=== PATIENT | female | born 1935 | race African-American/Black ===

== ENCOUNTER 2018-06-27 15:14 | Inpatient (IN) | payer OTHER, MEDICAID ==
[~2018-06-27] VITALS: Ht 160 cm; Wt 108.0 kg
[2018-06-27 15:17] VITALS: BP 138/65
--- NOTE | 2018-06-27 16:10 | NUR ---
ATIENT C/O F FEELING WEAK AND DIZZY, STATES THAT SHE FEELS "SOMETHING IS WRONG WITH MY BP." BP IS 138/65, PAIN 9/10 IN LEFT LEG, REPORTS FALLING LAST WEEK. . DENIES N/V/D; SKIN IS PINK/WARM/DRY; AWAKE, ALERT.LUNGS CLEAR BL; HR EVEN AND REGULAR; PT DENIES ANY FEVER, CP, SOB, OR COUGH AT THIS TIME; PATIENT STATES PAIN OF 9/10 AT THIS TIME; VSS; PATIENT POSITIONED FOR COMFORT; HOB ELEVATED; BEDRAILS UP X2; BED DOWN. ER MD MADE AWARE OF PT STATUS.
--- NOTE | 2018-06-27 16:18 | NUR ---
I WALKED OVER TO LAB URINE SAMPLE COLLECTED FROM PT
[2018-06-27] MEDS ORDERED: NACL 0.9% 1,000 ML IV SCH (16:53)
[2018-06-27 16:59] LABS: BASOPHILS % (AUTO) 0.6 % (0.0-2.0); EOSINOPHILS # (AUTO) 0.2 K/uL (0-0.4); EOSINOPHILS % (AUTO) 2.5 % (0.0-4.0); HEMATOCRIT 37.1 % (36-48); HEMOGLOBIN 11.5 g/dL (12.0-16.0); LYMPHOCYTES # (AUTO) 1.5 K/uL (2.5-16.5); LYMPHOCYTES % (AUTO) 23.8 % (20.5-51.1); MEAN CORPUSCULAR HEMOGLOBIN 27 pg (27-31); MEAN CORPUSCULAR HGB CONC 31 g/dL (33-37); MEAN CORPUSCULAR VOLUME 85.9 fL (80-94); MONOCYTES # (AUTO) 0.7 K/uL (0.8-1.0); MONOCYTES % (AUTO) 10.6 % (1.7-9.3); NEUTROPHILS # (AUTO) 3.8 K/uL (1.8-7.7); NEUTROPHILS % (AUTO) 62.5 % (42.2-75.2); PLATELET COUNT (AUTO) 209 K/uL (140-450); RED BLOOD CELL COUNT(AUTO) 4.32 MIL/uL (4.20-5.40); RED CELL DISTRIBUTION WIDTH 19.1 % (11.6-13.7); WHITE BLOOD COUNT (AUTO) 6.1 K/uL (4.8-10.8)
[2018-06-27] MEDS: NACL 0.9% 1,000 ML IV SCH (17:27)
[2018-06-27 17:28] LABS: ANION GAP 10.9 (8-16); CARBON DIOXIDE 27.1 mmol/L (21-32); CHLORIDE 108 mmol/L (98-107); CREATININE 2.1 mg/dL (0.6-1.3); GLUCOSE 92 mg/dL (74-106); SODIUM SERUM 141 mmol/L (136-145); UREA NITROGEN, BLOOD 34 mg/dL (7-18)
[2018-06-27 17:29] LABS: PROTHROMBIN TIME 9.9 secs (10.8-13.4)
[2018-06-27] MEDS ORDERED: ONDANSETRON 4 MG/2 ML VIAL IM/IVP PRN (17:30)
[2018-06-27] MEDS ORDERED: DOCUSATE SODIUM 100 MG GELCAP PO PRN (17:30)
[2018-06-27] MEDS ORDERED: ACETAMINOPHEN 325 MG TAB PO PRN (17:30)
--- NOTE | 2018-06-27 18:00 | NUR ---
TRIED ONE TIME TO INSERT IV AND CHARGE NURSE TRIED TWO TIMES, UNABLE TO INSERT IV.
[2018-06-27 18:18] LABS: MAGNESIUM 2.3 mg/dL (1.8-2.4); PHOSPHORUS 3.4 mg/dL (2.5-4.9)
[2018-06-27 18:19] LABS: CHOL/HDL RATIO 2.5 (1-4.5); THYROID STIMULATING HORMONE 1.3 uIU/mL (0.34-3.74); TOTAL BILIRUBIN 0.4 mg/dL (0.0-1.0)
[2018-06-27 18:24] LABS: MAGNESIUM 2.3 mg/dL (1.8-2.4)
[2018-06-27 18:42] LABS: ALBUMIN 3.6 g/dL (3.4-5.0)
[2018-06-27 18:44] LABS: APPEARANCE,URINE CLEAR (CLEAR); BILIRUBIN,URINE NEGATIVE (NEGATIVE); BLOOD, URINE NEGATIVE (NEGATIVE); COLOR,URINE YELLOW (YELLOW); LEUKOCYTE ESTERASE ,URINE NEGATIVE (NEGATIVE); NITRITE, URINE NEGATIVE (NEGATIVE); UGLUCOSE NEGATIVE (NEGATIVE)
[2018-06-27] MEDS ORDERED: HYDROcodone/APAP 5/325 MG 1 TAB TAB PO ONE (18:55)
--- NOTE | 2018-06-27 19:15 | NUR ---
ENDORSED PT TO PM NURSE
--- NOTE | 2018-06-27 19:38 | NUR ---
Pt report given to KYLE. Transfer of care at this time.
--- NOTE | 2018-06-27 19:44 | NUR ---
RECEIVED FROM ER PER WHEELCHAIR AWAKE AND ALERT. ABLE TO VERBALIZE SIMPLE NEEDS IN FRENCH. A/O X 4. NO SOB. DENIES ANY PAIN AT THIS TIME. EXPLAINED CALL LIGHT USE. ENCOURAGED TO CALL FOR ANY HELP SHE MAY NEED. IVF SITE TO RIGHT WRIST #24. DX. OF GENERALIZED WEAKNESS. HX. DEMENTIA. ON BED ALARM . SKIN INTACT. CARE PLANS FOR THE NIGHT DISCUSSED WITH HER.
[2018-06-27 20:28] VITALS: BP 148/65
--- NOTE | 2018-06-27 23:00 | NUR ---
ASSISTED BY [facility] [place] TO RESTROOM TO URINATE. CALL LIGHT WITH IN REACH AND BED ALARM ON. ABLE TO USE CALL LIGHT FOR HELP.
[2018-06-28 01:02] VITALS: BP 131/60
[2018-06-28] MEDS: HYDROcodone/APAP 7.5/325 MG 1 TAB PO PRN ×4 (01:05→20:16)
[2018-06-28] MEDS ORDERED: AMLO10TA4 PO (01:17)
[2018-06-28] MEDS ORDERED: FURO-570 PO (01:17)
[2018-06-28] MEDS ORDERED: METO100T33 PO (01:17)
[2018-06-28] MEDS ORDERED: CLON0.1T42 PO (01:17)
[2018-06-28] MEDS ORDERED: ALLO100T21 PO (01:17)
[2018-06-28] MEDS ORDERED: GABA100C PO (01:17)
[2018-06-28] MEDS ORDERED: cloNIDine 0.1 MG TAB PO SCH (01:20)
--- NOTE | 2018-06-28 01:44 | NUR ---
SLEEPING AT THIS TIME.
[2018-06-28] MEDS: NACL 0.9% 1,000 ML IV SCH ×2 (03:03→15:49)
--- NOTE | 2018-06-28 03:20 | NUR ---
SLEEPING WELL. WAKES UP EASILY WHEN CALLED BY NAME.
--- NOTE | 2018-06-28 04:21 | NUR ---
AWAKE AT THIS TIME. ASSISTED TO RESTROOM TO URINATE. ABLE TO VERBALIZE NEEDS WELL. WITH FORGETFULNESS AT TIMES. BED ALARM ON.
[2018-06-28 06:16] LABS: T4 (THYROXINE) 5.9 ug/dL (4.5-12.0)
--- NOTE | 2018-06-28 07:00 | NUR ---
TALKED TO DAUGHTER EWELINA AND INFORMED ME THAT HER MOTHER IS COMPLAINING OF LEFT LEG PAIN. PT. EXTRUDER OPERATOR VERTICAL THINKS IT NEEDS TO BE CHECKED RT SHE KEEPS FALLING. INFORMED CHARGE NURSE OF DAUGHTER'S REQUEST FOR FURTHER STUDY ABOUT THE LEG PAIN. WILL INFORM RESIDENT .
--- NOTE | 2018-06-28 07:30 | NUR ---
Received report from pm nurse Juliette. Pt resting in bed, awake, no signs of distress, FLACC 0. Call light within reach.
[2018-06-28 07:31] LABS: ANION GAP 14.4 (8-16); CARBON DIOXIDE 22.9 mmol/L (21-32); CHLORIDE 109 mmol/L (98-107); CREATININE 1.8 mg/dL (0.6-1.3); GLUCOSE 83 mg/dL (74-106); POTASSIUM 4.3 mmol/L (3.5-5.1); SODIUM SERUM 142 mmol/L (136-145)
[2018-06-28 07:33] LABS: MAGNESIUM 2.1 mg/dL (1.8-2.4); PHOSPHORUS 3.5 mg/dL (2.5-4.9)
[2018-06-28 08:00] VITALS: BP 111/72
--- NOTE | 2018-06-28 08:15 | NUR ---
PATIENT HAS BEEN SCREENED AND CATEGORIZED HIGH NUTRITION RISK. PATIENT WILL BE SEEN WITHIN 1-2 DAYS OF ADMISSION. 06/28/18-06/29/[address]
--- NOTE | 2018-06-28 08:15 | NUR ---
Received phone call from pt's daughter Linda stating that pt's knitting machine fixer had suggested pt might have a clot in her left leg. Dr. Call notified with request for BLE US. Pt currently resting in bed, awake, no signs of distress. BLE with mild swelling, no redness, no Homans sign. Right hand IV intact with ongoing NS @ 70 ml/hr. Bed in lowest position with alarm on. Call light within reach.
[2018-06-28] MEDS: LACTOBACILLUS RHAMNOSUS GG 1 EACH CAP PO SCH (08:26)
[2018-06-28] MEDS: METOPROLOL SUCCINATE 50 MG TABER PO SCH (08:26)
[2018-06-28] MEDS: amLODIPine 5 MG TAB PO SCH (08:26)
[2018-06-28] MEDS: ALLOPURINOL 100 MG TAB PO SCH (08:27)
[2018-06-28] MEDS: GABAPENTIN 100 MG CAP PO SCH ×3 (08:27→17:24)
[2018-06-28 08:44] LABS: BASOPHILS # (AUTO) 0.1 K/uL (0.00-0.22); BASOPHILS % (AUTO) 1.1 % (0.0-2.0); EOSINOPHILS # (AUTO) 0.2 K/uL (0-0.4); EOSINOPHILS % (AUTO) 3.1 % (0.0-4.0); HEMOGLOBIN 10.6 g/dL (12.0-16.0); LYMPHOCYTES # (AUTO) 1.6 K/uL (2.5-16.5); LYMPHOCYTES % (AUTO) 27.7 % (20.5-51.1); MEAN CORPUSCULAR HEMOGLOBIN 27 pg (27-31); MEAN CORPUSCULAR HGB CONC 31 g/dL (33-37); MONOCYTES # (AUTO) 0.6 K/uL (0.8-1.0); MONOCYTES % (AUTO) 10.8 % (1.7-9.3); NEUTROPHILS # (AUTO) 3.3 K/uL (1.8-7.7); NEUTROPHILS % (AUTO) 57.3 % (42.2-75.2); PLATELET COUNT (AUTO) 196 K/uL (140-450); RED BLOOD CELL COUNT(AUTO) 3.96 MIL/uL (4.20-5.40); WHITE BLOOD COUNT (AUTO) 5.8 K/uL (4.8-10.8)
[2018-06-28] MEDS ORDERED: FUROSEMIDE 40 MG TAB PO SCH (09:00)
--- NOTE | 2018-06-28 09:10 | NUR ---
PT at bedside for eval & tx.
[2018-06-28 10:55] LABS: UREA NITROGEN, BLOOD 30 mg/dL (7-18)
--- NOTE | 2018-06-28 11:45 | NUR ---
extractions technician at bedside for BLE & thyroid US.
--- NOTE | 2018-06-28 12:30 | NUR ---
Pt sitting up in bed, eating lunch. No signs of distress. Call light within reach.
[2018-06-28] MEDS: MECLIZINE 25 MG TAB PO SCH ×2 (13:21→17:23)
--- NOTE | 2018-06-28 14:40 | NUR ---
Pt transferred from room 107A to 121A via hospital bed. Pt agreeable with transfer. No c/o discomfort at this time. Call light within reach.
--- NOTE | 2018-06-28 15:42 | NUR ---
Car Cleaner Note: Per Deepika from [facility] , patient has been living in their facility for about 1 month. She reported patient is non ambulatory and uses a wheelchair. She stated patient does not have an existing Advance Directive in file and her daughter Linda Jerez is her health care decision maker. Patient's pcp is from [facility]. Stores Laborer and/or Strap Sewer will follow up as needed.
[2018-06-28 16:00] VITALS: BP 124/55
--- NOTE | 2018-06-28 19:18 | NUR ---
Report given to pm nurse Juliette. Pt stable.
--- NOTE | 2018-06-28 19:20 | NUR ---
RECEIVED FROM AM RN IN BED AWAKE AND ALERT. NO SOB. DENIES PAIN AT THIS TIME. MEDICATED FOR PAIN PRN . ABLE TO VERBALIZE NEEDS WELL. ABLE TO USE CALL LIGHT TOO FOR HELP. ENCOURAGED TO CALL FOR ANY HELP SHE MAY NEED OR IF IN PAIN.
[2018-06-28 20:06] VITALS: BP 113/50
--- NOTE | 2018-06-28 21:30 | NUR ---
PT. SLEEPING. NO RESTLESSNESS. MEDICATED WITH NORCO REQUESTED FOR GENERALIZED PAIN COMPLAINT. BED ALARM ON . CALL LIGHT WITH IN REACH.
[2018-06-29 00:13] VITALS: BP 111/44
--- NOTE | 2018-06-29 00:18 | NUR ---
PT. SLEEPING BUT WOKE UP EASILY WHEN VITAL SIGNS TAKEN. NO PAIN COMPLAINTS DONE. IVF SITE INTACT AND NO INFILTRATION.
--- NOTE | 2018-06-29 02:00 | NUR ---
PT. TURNED TO SIDES BY CNAS WITH PILLOW SUPPORT. ABLE TO VERBALIZE NEEDS WELL. ABLE TO MOVE EXTREMITIES. CALL LIGHT WITH IN REACH.
--- NOTE | 2018-06-29 04:30 | NUR ---
PT. TURNED TO SIDES BY CNAS. CALL LIGHT WITH IN REACH. NO SOB. DENIES PAIN AT THIS TIME. CALL LIGHT WITH IN REACH AT ALL TIMES. ABLE TO VERBALIZE NEEDS WELL.
[2018-06-29] MEDS: NACL 0.9% 1,000 ML IV SCH (05:52)
[2018-06-29 06:52] LABS: ANION GAP 12.5 (8-16); CARBON DIOXIDE 23.9 mmol/L (21-32); CHLORIDE 110 mmol/L (98-107); CREATININE 1.8 mg/dL (0.6-1.3); GLUCOSE 83 mg/dL (74-106); POTASSIUM 4.4 mmol/L (3.5-5.1); SODIUM SERUM 142 mmol/L (136-145); UREA NITROGEN, BLOOD 29 mg/dL (7-18)
--- NOTE | 2018-06-29 07:01 | NUR ---
NEW IVF LINE INSERTED TO LEFT HAND #24 RT PT. ACCIDENTALLY D/CD OLD IVF TO RIGHT THUMB. TIP INTACT. VERBALIZES WELL.
[2018-06-29 07:10] LABS: HEMATOCRIT 35.4 % (36-48); HEMOGLOBIN 11.1 g/dL (12.0-16.0); MEAN CORPUSCULAR HEMOGLOBIN 27 pg (27-31); MEAN CORPUSCULAR HGB CONC 31 g/dL (33-37); MEAN CORPUSCULAR VOLUME 86.7 fL (80-94); PLATELET COUNT (AUTO) 190 K/uL (140-450); RED BLOOD CELL COUNT(AUTO) 4.08 MIL/uL (4.20-5.40); RED CELL DISTRIBUTION WIDTH 18.9 % (11.6-13.7); WHITE BLOOD COUNT (AUTO) 4.9 K/uL (4.8-10.8)
[2018-06-29 07:11] LABS: BASOPHILS # (AUTO) 0.1 K/uL (0.00-0.22); BASOPHILS % (AUTO) 1.1 % (0.0-2.0); EOSINOPHILS # (AUTO) 0.2 K/uL (0-0.4); EOSINOPHILS % (AUTO) 4.7 % (0.0-4.0); LYMPHOCYTES # (AUTO) 1.4 K/uL (2.5-16.5); LYMPHOCYTES % (AUTO) 28.5 % (20.5-51.1); MONOCYTES # (AUTO) 0.5 K/uL (0.8-1.0); MONOCYTES % (AUTO) 10.6 % (1.7-9.3); NEUTROPHILS # (AUTO) 2.7 K/uL (1.8-7.7); NEUTROPHILS % (AUTO) 55.1 % (42.2-75.2)
--- NOTE | 2018-06-29 07:15 | NUR ---
RECEIVED BEDSIDE REPORT FROM LUIS MANUEL WRIGHT. PT STABLE, AWAKE, AND ALERT. NO SIGNS OF DISTRESS NOTED. DENIES PAIN. NO REDNESS, SWELLING, OR INFLAMMATION NOTED ON IV SITE. BED IN LOW POSITION. CALL LIGHT WITHIN REACH. SAFETY MEASURES IN PLACE. PLAN OF CARE REVIEWED.
[2018-06-29 08:00] VITALS: BP 151/59
[2018-06-29] MEDS ORDERED: RIVAROXABAN 15 MG TAB PO SCH (09:00)
[2018-06-29] MEDS: METOPROLOL SUCCINATE 50 MG TABER PO SCH (09:00)
[2018-06-29] MEDS: amLODIPine 5 MG TAB PO SCH (09:26)
[2018-06-29] MEDS: ALLOPURINOL 100 MG TAB PO SCH (09:26)
[2018-06-29] MEDS: LACTOBACILLUS RHAMNOSUS GG 1 EACH CAP PO SCH (09:26)
[2018-06-29] MEDS: MECLIZINE 25 MG TAB PO SCH ×2 (09:27→13:17)
[2018-06-29] MEDS: GABAPENTIN 100 MG CAP PO SCH ×2 (09:27→13:17)
--- NOTE | 2018-06-29 09:30 | NUR ---
P.T. NOTES PATIENT REFUSED TO HAVE P.T. SERVICES, EXPLAINED THE BENEFITS OF OUT OF BED ACTIVITIES AND ATTEMPTED X 3 BUT STILL REFUSED. STATES SHE HAS A HEADACHE AND JUST WANT TO REST FOR NOW. HER NURSE ARIANE ENGLISH WAS MADE AWARE.
--- NOTE | 2018-06-29 09:43 | NUR ---
ADMINISTERED SCHEDULED MEDICATIONS. PT TOLERATED WELL. NO OTHER NEEDS AT THIS TIME.
--- NOTE | 2018-06-29 10:08 | NUR ---
Spoke with Radha social media community manager from [facility] and informed her that pt has orders for home health for PT. Radha said [facility] doesn't send home health to the pt but they have their own center for PT and she will arrange for it. AUTH for [facility] [phone]. Faxed to [facility] PT notes and 's orders Meds faxed to .
[2018-06-29] MEDS ORDERED: MECL-272 PO (10:17)
[2018-06-29] MEDS ORDERED: RIVA20TA PO (10:17)
[2018-06-29] MEDS ORDERED: RIVA15TA1 PO (10:17)
--- NOTE | 2018-06-29 10:40 | NUR ---
Informed Dr. Douglas and Haritha charge nurse that pt's orders for PT will be arranged by [facility] in their center. Nurse can arranged for pt to be continuous pickling line pickler helper by [facility] .
--- NOTE | 2018-06-29 11:05 | NUR ---
SPOKE WITH DANITA FROM [facility] REGARDING PATIENT'S TRANSFER.
--- NOTE | 2018-06-29 12:22 | NUR ---
will curing pickling packer pt from room 121 A at 1500 and transported to [address] [place] [address]. . Carter Bailon RN informed pt's curing pickling packer time by is at 1500.
--- NOTE | 2018-06-29 13:24 | NUR ---
ADMINISTERED SCHEDULED MEDICATIONS. PT TOLERATED WELL. NO OTHER NEEDS AT THIS TIME. DAUGHTER AT BEDSIDE.
--- NOTE | 2018-06-29 16:05 | NUR ---
D/C INSTRUCTIONS AND PRESCRIPTION GIVEN. PT AND FAMILY VERBALIZED UNDERSTANDING. IV DISCONTINUED, CATHETER TIP INTACT, BLEEDING CONTROLLED. QUESTIONS AND CONCERNS WERE ANSWERED. PT STABLE, NO SIGNS OF DISTRESS NOTED. PT PICKED UP BY TO BE TRANSFERRED TO [facility].
== END 2018-06-29 16:05 | disposition home or self-care (01) | DRG 73 ==
LOC: MED 15:14 → MTU 17:31
PROVIDERS: ADMIT General Practice; ATTEND General Practice
DX: G90.8 Other disorders of autonomic nervous system (principal); N17.0 Acute kidney failure with tubular necrosis; I69.351 Hemiplegia and hemiparesis following cerebral infarction affecting right dominant side; G62.9 Polyneuropathy, unspecified; M10.9 Gout, unspecified; I10 Essential (primary) hypertension; I48.91 Unspecified atrial fibrillation; E07.89 Other specified disorders of thyroid; J44.9 Chronic obstructive pulmonary disease, unspecified; Z88.2 Allergy status to sulfonamides; Z88.0 Allergy status to penicillin; Z91.013 Allergy to seafood; Z95.0 Presence of cardiac pacemaker; I25.2 Old myocardial infarction; Z90.49 Acquired absence of other specified parts of digestive tract
CPT/HCPCS: 36415; 70450; 71045; 74018; 76536; 80048; 81003; 82040; 82140; 82150; 82247; 83036; 83605; 83690; 83735; 83880; 84100; 84155; 84436; 84443; 84450; 84460; 84479; 84484; 85025; 85610; 85730; 87081; 93005; 93880; 93970; 97116; 99285; J7030; J8597; Q0092

== ENCOUNTER 2020-03-08 | Inpatient (IN) | payer OTHER, MEDICAID, SELFPAY ==
[~2020-03-08] VITALS: Ht 167.6 cm; Wt 67.6 kg
[~2020-03-08] MED LIST: ALLO100T21 PO; AMLO10TA4 PO; CLON0.1T42 PO; FURO-570 PO; GABA100C PO; MECL-311 PO; METO100T99 PO; RIVA15TA1 PO; RIVA20TA PO
[2020-03-08 00:08] VITALS: BP 107/85
--- NOTE | 2020-03-08 00:13 | NUR ---
PT TAKEN TO BED 08 VIA RAMBOY.
--- NOTE | 2020-03-08 00:15 | NUR ---
84 YO F BIBA FROM [facility] FOR C/C OF GENERALIZED WEAKNESS, LIGHTHEADEDNESS, AND DECREASED O2 SAT. PER [facility] REPORT PT IS COVID POSITIVE AND WAS ORDERED 2L OF NC BUT WAS FOUND WITHOUT O2 IN PLACE AND SATING AT 87% ON ROOM AIR. PT PRESENTS ON A 15L NRB AT 99%. BILATERAL CRACKLES AUSCULTATED IN LOWER LOBES. PT TITRATED DOWN TO 6L OXIMIZER SATING AT 96%. PT PRESENT IN NSR, AFEBRILE, AND DENIES SOB AND COUGH. LIMITED INFORMATION PROVIDED BY PT DUE TO DEMENTIA DX. PT PLACED ON INSPECTOR FINAL ASSEMBLY ELECTRICAL AND PULSE OX. BED LOCKED AND IN LOWEST POSITION. SIDE RAILS X2. MED HX: A FIB, DM2, CAD, CVA, DEMENTIA
--- NOTE | 2020-03-08 00:20 | NUR ---
LAB AT BEDSIDE
--- NOTE | 2020-03-08 00:20 | NUR ---
EKG AT BEDSIDE
--- NOTE | 2020-03-08 00:32 | NUR ---
RT AT BEDSIDE
[2020-03-08 00:36] LABS: HEMOGLOBIN 11.4 g/dL (12.0-16.0); RED CELL DISTRIBUTION WIDTH 21.4 % (11.6-13.7)
--- NOTE | 2020-03-08 00:38 | NUR ---
RAD AT BEDSIDE
[2020-03-08 00:41] LABS: HEMATOCRIT 35.6 % (36-48); MEAN CORPUSCULAR HEMOGLOBIN 27 pg (27-31); MEAN CORPUSCULAR HGB CONC 32 g/dL (33-37); MEAN CORPUSCULAR VOLUME 82.7 fL (80-94); PLATELET COUNT (AUTO) 201 K/uL (140-450); WHITE BLOOD COUNT (AUTO) 6.2 K/uL (4.8-10.8)
[2020-03-08 00:54] LABS: PROTHROMBIN TIME 30.6 secs (10.8-13.4)
[2020-03-08 00:55] LABS: LACTATE DEHYDROGENASE 317 U/L (81-234)
[2020-03-08 00:56] LABS: ALBUMIN 2.8 g/dL (3.4-5.0); ANION GAP 20.9 (8-16); ASPARTATE AMINOTRANSFERASE 25 U/L (15-37); CARBON DIOXIDE 19.3 mmol/L (21-32); CHLORIDE 100 mmol/L (98-107); GLUCOSE 88 mg/dL (74-106); POTASSIUM 4.2 mmol/L (3.5-5.1); SODIUM SERUM 136 mmol/L (136-145); TOTAL BILIRUBIN 0.5 mg/dL (0.0-1.0); UREA NITROGEN, BLOOD 50 mg/dL (7-18)
--- NOTE | 2020-03-08 01:00 | NUR ---
ERMD MADE AWARE OF 98/40 BP.
[2020-03-08 01:10] LABS: BASOPHILS % (MANUAL) 0 % (0-2); EOSINOPHILS % (MANUAL) 0 % (0-4); LYMPHOCYTES % (MANUAL) 9 % (20-46); MONOCYTES % (MANUAL) 5 % (5-12)
[2020-03-08] MEDS ORDERED: NACL 0.9% 1,000 ML IV ONE (01:15)
[2020-03-08 01:19] LABS: C-REACTIVE PROTEIN QUANT 19.4 mg/dL (0.0-0.9)
--- NOTE | 2020-03-08 01:52 | NUR ---
ELINA SWAB COLLECTED AND TAKEN TO LAB
[2020-03-08] MEDS ORDERED: OMEP20TC11 PO (01:54)
[2020-03-08] MEDS ORDERED: CYCL10TA33 PO (01:54)
[2020-03-08] MEDS ORDERED: ALLO100T21 PO (01:54)
[2020-03-08] MEDS ORDERED: IMO2 PO (01:54)
[2020-03-08] MEDS ORDERED: WARF4TAB84 PO (01:54)
--- NOTE | 2020-03-08 02:00 | NUR ---
SPOKE WITH PTS DAUGHTER ON PHONE TO ANSWER QUESTIONS AND EXPLAIN PLAN OF CARE. SU OLIVER JR ([phone])
--- NOTE | 2020-03-08 02:39 | NUR ---
CALLED AND GAVE REPORT TO LUIS MANUEL PAN ON MST FLOOR.
--- NOTE | 2020-03-08 03:15 | NUR ---
Patient will be admitted to care of [facility]. Admited to TELE. Will go to room 115A. Belongings list completed. Report to LUIS MANUEL PAN.
[2020-03-08 03:20] VITALS: BP 105/52
--- NOTE | 2020-03-08 03:20 | NUR ---
ADMITTED THE PATIENT FROM ER VIA GURNEY. PATIENT AWAKE,ALERT, ORIENTEDX1. DENIES ANY PAIN,CHEST PAIN,SOB AND PALPITATIONS. CONNECTED PT ON TESTER REGULATOR SHOWING SR,HR-71. VSS, AFEBRILE, SATING 93% ON 4L/OXYMIZER. ORIENTED THE PT TO THE ROOM SETTING AND USE OF CALL LIGHT SYSTEM. FALL PRECAUTION IMPLEMENTED AND INSTRUCTED THE PT NOT TO GET OUT OF BED WITHOUT ASSISTANCE.BED ALARM ON AND BED IN LOW POSITION. CALL LIGHT WITHIN REACH. DROPLET PRECAUTION IMPLEMENTED.WILL CONTINUE POC.
--- NOTE | 2020-03-08 04:00 | NUR ---
PATIENT VITALS SIGNS STABLE, AFEBRILE, SATING 93% ON 4L/OXYMIZER. SINUS RHYTHM ON PLATE SETTER, HR-66. NO COMPLAIN OF PAIN AT THIS TIME. CALL LIGHT WITHIN REACH.AM CARE RENDERED.
--- NOTE | 2020-03-08 05:29 | NUR ---
PT SEEN AND ASSESSED. PT PLACED ON 4L OXYMIZER WITH SPO2 OF 94%. AUSCULTATION REVEALS BILATERAL COARSE CRACKLE BREATH SOUNDS. PT IS IN NO APPARENT RESPIRATORY DISTRESS AT THIS TIME. WILL CONTINUE TO MONITOR PT.
[2020-03-08] MEDS ORDERED: INSULIN LISPRO SLIDING SCALE 100 UNITS/ML VIAL SUBQ PRN (05:50)
[2020-03-08] MEDS ORDERED: DEXTROSE 50% 50 ML SYR IVP PRN (05:50)
--- NOTE | 2020-03-08 06:00 | NUR ---
PATIENT STABLE. NO SIGN AND SYMPTOMS OF DISTRESS NOTED . NO COMPLAIN AT THIS TIME. ALL NEEDS ATTENDED. CALL LIGHT WITHIN REACH. WILL ENDORSE THE PT TO THE ONCOMING RN FOR CONTINUITY OF CARE.
[2020-03-08] MEDS: BLOOD GLUCOSE MONITORING 1 DEV DEV FS SCH ×4 (06:42→20:27)
--- NOTE | 2020-03-08 07:41 | NUR ---
ENDORSED PT TO DAY RN FOR CONTINUITY OF CARE. PT STABLE. SIGNING OFF.
--- NOTE | 2020-03-08 07:42 | NUR ---
RECEIVED REPORT FROM AIR TESTER NURSE ARIANE ALFARO FOR CONTINUITY OF CARE. PATIENT IN STABLE CONDITION. RESPIRATIONS EVEN AND UNLABORED, O2 VIA OXYMIZER AT 4LPM. IV INTACT AND PATENT. SAFETY MEASURES IN PLACE. BED IN LOW POSITION. BED ALARM ON. CALL LIGHT WITHIN REACH. WILL CONTINUE TO MONITOR.
[2020-03-08 08:00] VITALS: BP 108/50
[2020-03-08] MEDS ORDERED: HYDROcodone/APAP 7.5/325 MG 1 TAB PO PRN (08:25)
[2020-03-08] MEDS ORDERED: ONDANSETRON 4 MG/2 ML VIAL IM/IVP PRN (08:25)
[2020-03-08] MEDS ORDERED: DOCUSATE SODIUM 100 MG GELCAP PO PRN (08:25)
[2020-03-08] MEDS ORDERED: ZOLPIDEM 5 MG TAB PO PRN (08:25)
[2020-03-08] MEDS ORDERED: ACETAMINOPHEN 325 MG TAB PO PRN (08:25)
[2020-03-08] MEDS ORDERED: POTASSIUM CHLORIDE 40 MEQ, LIDOCAINE MPF 1% 25 MG in NACL 0.9% 250 ML IV PRN (08:25)
[2020-03-08] MEDS ORDERED: guaiFENesin DM 200/20 MG-10 ML 10 ML UDC PO PRN (08:25)
[2020-03-08] MEDS ORDERED: ALBUTEROL SULFATE/IPRATROPIU 3 ML SOL IH PRN (08:30)
[2020-03-08] MEDS ORDERED: ALBUTEROL HFA MDI 90 MCG/ACTUATION 8 GM INH PRN (08:30)
[2020-03-08] MEDS ORDERED: NON-FORMULARY ITEM (Amlodipine Besylate (Amlodipine) 10 MG) PO SCH (09:00)
[2020-03-08] MEDS ORDERED: RIVAROXABAN 10 MG TAB PO SCH (09:00)
[2020-03-08] MEDS ORDERED: AZITHROMYCIN 250 MG TAB PO SCH (09:00)
[2020-03-08] MEDS ORDERED: METOPROLOL TARTRATE 100 MG PO SCH (09:00)
[2020-03-08] MEDS ORDERED: COMMUNICATION ORDER MC SCH (09:00)
--- NOTE | 2020-03-08 09:00 | NUR ---
0900 ROCEPHIN ORDER AND COMMUNICATION ORDER WAS NOT MISSED. MEDICATION WAS UNVERIFIED AND THEN DROPPED OFF THE MEDICATION LIST.
[2020-03-08 09:04] LABS: CHOL/HDL RATIO 2.3 (1-4.5); FREE T4 (FREE THYROXINE) 1.59 ng/dL (0.76-1.46); MAGNESIUM 1.9 mg/dL (1.8-2.4); PHOSPHORUS 3.4 mg/dL (2.5-4.9); THYROID STIMULATING HORMONE 1.13 uIU/mL (0.34-3.74)
[2020-03-08] MEDS: FUROSEMIDE 40 MG TAB PO SCH (09:36)
[2020-03-08] MEDS: ASCORBIC ACID 500 MG TAB PO SCH (09:36)
[2020-03-08] MEDS: ZINC SULF 220 MG CAP PO SCH (09:37)
[2020-03-08] MEDS: PANTOPRAZOLE 40 MG TABEC PO SCH (09:37)
[2020-03-08] MEDS: amLODIPine 5 MG TAB PO SCH (09:37)
[2020-03-08] MEDS: NACL 0.9% 1,000 ML IV SCH (09:42)
--- NOTE | 2020-03-08 10:00 | NUR ---
DAUGHTER SU (SAME NAME PATIENT) CALLED FOR PATIENT UPDATE. PATIENT GAVE CONSENT TO RELEASE INFORMATION. ALL QUESTIONS ANSWERED AT THIS TIME.
--- NOTE | 2020-03-08 10:17 | NUR ---
DISCHARGE PLANNING: THIS IS AN 84 Y/O FEMALE PATIENT FROM [facility], WHO WAS BIBA DUE TO O2 DESATURATION ACCOMPANIED WITH COUGH AND SOB. PAST MEDICAL HISTORY INCLUDE DEMENTIA, A FIB, HTN, CVA AND CO X2. INITIAL DIAGNOSIS OF COVID 19, HYPOXIA. ON OXYMIZER AT 2L, O2 SAT 93%. CURRENT LABS INCLUDE WBC 6.2, H/H 11.4/35.6, NA/K 136/4.2, BUN/CREA 50/3.0, CRP 19.4, BNP 354 AND ALB 2.8. COVID RAPID TEST POSITIVE. MRSA NARES PENDING. BLOOD CS PENDING. ON XARELTO, DECADRON. PULMO, NEPHRO AND ID CONSULTS IN PLACE. DC PLAN TO SNF ONCE STABLE. Addendum: 03/08/20 at 1149 by Kacey Miller CM DC FARMWORKER DAIRY: SPOKE TO PATIENTS SU GRAFF [phone] TO DISCUSS DC PLANS. SHE HAS BEEN IN CONTACT WITH KEARA FROM [facility] DC TO SNF. SHE IS AWARE OF THE CONTRACTED FACILITIES THAT ARE ACCEPTING COVID PATIENTS. SHE IS GOING TO SPEAK TO KEARA AND CONTACT ME BACK. Addendum: 03/08/20 at 1152 by Kacey Miller CM LYNNETET AYALA: FAXED PATIENTS CLINICALS TO [facility] Addendum: 03/08/20 at 1216 by Kacey Miller CM LYNNETTE AYALA: FOLLOWED UP WITH KEARA AT [facility]. SHE STATED THAT PATIENTS DAUGHTER PREFERS [facility]. FAXED PATIENTS CLINICALS TO [facility]. Addendum: 03/08/20 at 1234 by Kacey Miller CM LYNNETTE AYALA: RECEIVED CALL FROM [facility] THEY ARE ABLE TO ACCEPT THIS PATIENT. Addendum: 03/08/20 at 1430 by Kacey Miller CM LYNNETTE AYALA: KEARA DALEY AUTH FOR TRANSPORTATION [id number]. WE CAN USE [facility]. MAKE SURE TO ASK FOR THE WHITTER DISPATCH TO BE ROUTED TO THE RIGHT LOCATION. Addendum: 03/08/20 at 1434 by Kacey Miller CM LYNNETTE AYALA: JEFFERY STOVALL AT [facility] PATIENT CAN GO TO ROOM 110-B Addendum: 11/02/20 at 1129 by Haritha Arias CM DC PLANNING: TROPONIN 0.294 CONSULTED WITH PIE CRIMPING MACHINE OPERATOR, AWAITING FOR THE RECOMMENDATIONS SEEN BY CATHY WINTER AND ALLISON. CONTINUE IVF NS AT 60ML/HR CONTINUE DECADRON, CONVALESCENT PLASMA AND O2 THERAPY 2L/NC SATING 94%. DC PLAN TO GO TO [facility] ROOM 110B TOMORROW. CM TO FOLLOW Addendum: 03/13/20 at 1203 by Kacey Miller CM DC FARMWORKER DAIRY: PATIENT WILL DISCHARGE TODAY TO [facility] [phone] ROOM 110-B. CONTACTED [facility] TO SET UP TRANSPORTATION AUTH# [id number]. THEY WILL BE CALLING ME BACK SHORTLY WITH AN ETA. Addendum: 03/13/20 at 1213 by Kacey Miller CM LYNNETTE AYALA: RECEIVED A CALL BACK FROM [facility]. THEY DO NOT HAVE ANY AVAILABLE TRANSPORTATION FOR TODAY. Addendum: 03/13/20 at 1245 by Kacey Miller CM LYNNETTE AYALA: SPOKE TO JACK SARAH AT [facility] REGARDING TRANSPORTATION ISSUES. SHE REACHED OUT TO HER HOT STICK WORKER RIA HE ALSO RECEIVED A CALL FROM [facility] STATING THAT THEY DID NOT HAVE TRANSPORTATION. KEARA STATED TO TRY [facility]. Addendum: 03/13/20 at 1316 by Kacey Miller CM LYNNETTE AYALA: SPOKE TO SASHA AT [facility] THEY ARE NOT ABLE TO TRANSPORT THIS PATIENT BECAUSE THERE IS NO MEDICAL NECESSITY. SPOKE TO WILMAN AT [facility] THEY CAN NOT PROVIDE TRANSPORTATION TODAY. Addendum: 03/13/20 at 1331 by Kacey Miller CM LYNNETTE FARMWORKER DAIRY: NOTIFIED PATIENTS DAUGHTER THAT PATIENT WILL BE DISCHARGED TODAY TRANSPORTATION IS SET UP FOR 6:30 PM-7:00PM WITH [facility] [phone]. NOTIFIED LUIS MANUEL TAMYAO Addendum: 03/13/20 at 1332 by Kacey Miller CM LYNNETTE AYALA: [address] [place], [place] [address]
--- NOTE | 2020-03-08 10:23 | NUR ---
SOCIAL WORK NOTE: Patient's Orientation Unable To Assess Information Provided By SU ESCALONA Comments SW WAS UNABLE TO MEET PATIENT AT BEDSIDE. SW COMPLETED ASSESSMENT WITH DAUGHTER BY THE SAME NAME. SW REQUESTED POA BE FAXED TO CASE MANAGEMENT: [phone]. Power Plant Engineer, Realtionship and Phone Number SU ESCALONA/ERASMO [phone] Healthcare Power of Anime Artist Yes - SU ESCALONA Does Patient Have a POLST Yes Identifying Problems No Social Work Triggers Is A Social Work Consult Needed No Mandate Report Filed No Explanation Of Identifying Problems PATIENT IS AN 84-YEAR-OLD FEMALE ADMITTED FOR COVID 19 AND HYPOXIA. PATIENT HAS PMHX OF DEMENTIA AND AFIB. PATIENT WAS ADMITTED FROM [facility] [phone]. Admitted From Assisted Living/Resident Pre-Admission Level Of Functioning Status Total Care Level Of Functioning Comment PER DAUGHTER, PATIENT REQUIRES EXTENSIVE MONITORING AND TOTAL ASSISTANCE WITH ADLS. Prior Resources/Services Used In Last 12 Months Assisted Living Prior Resources/Service Comments PATIENT HAS BEEN A RESIDENT AT [facility] SINCE NOVEMBER 2019. Prior DME Home Oxygen Walker Wheelchair Other DME: PACEMAKER Dialysis Comments N/A Living Situation Asst'd Living/Board &Care Patient Had Caregiver No Home Support No Caregiver Issues Financial Issues No Known Financial Issue Referral To The Financial Counselor Needed No Factors/Needs [facility]ist [facility] Explanation And Or Other Factors Affecting/Possible DC Needs [facility] DOES NOT ACCEPT COVID PATIENTS BACK. SW INFORMED DAUGHTER. DAUGHTER STATED SHE SPOKE TO GE REGARDING SNFS THAT ARE CONTRACTED WITH INSURANCE. Pt/Rep Participated In Discharge Plan Yes Patient/Family Agress With Discharge Plan Yes Discharge Plan Comments TENTATIVE DISCHARGE PLAN IS FOR PATIENT TO BE DISCHARGED TO SNF. DC Plan Status Initiated
[2020-03-08 12:00] VITALS: BP 104/52
--- NOTE | 2020-03-08 12:01 | NUR ---
PATIENT SLEEPING AT THIS TIME. RESPIRATIONS EVEN AND UNLABORED. BED IN LOW POSITION. CALL LIGHT WITHIN REACH. BED ALARM ON. WILL CONTINUE TO MONITOR.
[2020-03-08] MEDS ORDERED: METOPROLOL SUCCINATE 50 MG TABER PO SCH (12:15)
[2020-03-08] MEDS: ALBUTEROL SULFATE/IPRATROPIU 3 ML SOL IH SCH ×2 (13:00→19:00)
--- NOTE | 2020-03-08 14:30 | NUR ---
CONSENT SIGNED FOR CONVALESCENT PLASMA AT THIS TIME.
--- NOTE | 2020-03-08 14:46 | NUR ---
PATIENT HAS BEEN SCREENED AND CATEGORIZED MODERATE NUTRITION RISK. PATIENT WILL BE SEEN WITHIN 3-5 DAYS OF ADMISSION. 03/10/20 03/12/[address]
--- NOTE | 2020-03-08 15:02 | NUR ---
PHARMACY CALLED VEENA TERRAZAS ORDERED LOVENOX 1MG DUE TO PATIENT HX PHARMACY DISCUSSED CHANGING MEDICATION TO XERALTO AT THIS TIME. VEENA TERRAZAS IS AWARE.
[2020-03-08 16:00] VITALS: BP 109/55
--- NOTE | 2020-03-08 17:30 | NUR ---
DAUGHTER SU (SAME NAME PATIENT) CALLED FOR PATIENT UPDATE. PATIENT GAVE CONSENT TO RELEASE INFORMATION. ALL QUESTIONS ANSWERED AT THIS TIME.
--- NOTE | 2020-03-08 19:15 | NUR ---
GAVE REPORT TO PLATEN GRINDER NURSE MARY FOR CONTINUITY OF CARE. PATIENT IN STABLE CONDITION.
--- NOTE | 2020-03-08 19:58 | NUR ---
NO TX GIVEN DUE TYO COVID POSITIVE. PT IS ON 2L OXYMIZER VITAL SIGBN STABLE. NO RESPIRATORY DISTRESS NOTED. WILL CONT TO MONITOR
[2020-03-08 20:00] VITALS: BP 112/56
--- NOTE | 2020-03-08 20:30 | NUR ---
RECEIVED PATIENT IN BED. PATIENT AWAKE AND ALERT. PT ONLY ORIENTED TO SELF. PT ON 2L OXIMIZER. NO SOB OR S/S OF DISTRESS NOTED AT THIS TIME. BILATERAL LOWER EXTREMITY EDEMA NOTED. NO C/O CHEST PAIN. PT ON TELE MONITORING. FALL PRECAUTIONS IN PLACE. WILL CONTINUE TO MONITOR
[2020-03-08] MEDS: APIXABAN 2.5 MG TAB PO SCH (21:56)
--- NOTE | 2020-03-08 21:56 | NUR ---
ADMINISTERED SCHEDULED MEDICATION. PT TOLERATED WELL
[2020-03-09] VITALS: BP 126/58
--- NOTE | 2020-03-09 00:19 | NUR ---
PT ASLEEP IN BED AT THIS TIME. PT ON 2L O2, O2 SAT 93%. NO S/S OF DISTRESS NOTED AT THIS TIME
[2020-03-09] MEDS: ALBUTEROL SULFATE/IPRATROPIU 3 ML SOL IH SCH ×4 (01:00→19:00)
[2020-03-09] MEDS: NACL 0.9% 1,000 ML IV SCH ×2 (01:05→17:45)
--- NOTE | 2020-03-09 04:20 | NUR ---
1 UNIT OF CONVALESCENT PLASMA TRANSFUSED. NO ADVERSE REACTION NOTED. VITAL SIGNS WITHIN NORMAL LIMITS
[2020-03-09 04:35] VITALS: BP 120/53
[2020-03-09 05:44] LABS: BASOPHILS % (AUTO) 0.2 % (0.0-2.0); HEMATOCRIT 35.8 % (36-48); HEMOGLOBIN 11.4 g/dL (12.0-16.0); LYMPHOCYTES # (AUTO) 0.3 K/uL (2.5-16.5); LYMPHOCYTES % (AUTO) 8.1 % (20.5-51.1); MEAN CORPUSCULAR HEMOGLOBIN 27 pg (27-31); MEAN CORPUSCULAR HGB CONC 32 g/dL (33-37); MEAN CORPUSCULAR VOLUME 83.7 fL (80-94); MONOCYTES # (AUTO) 0.2 K/uL (0.8-1.0); MONOCYTES % (AUTO) 4.3 % (1.7-9.3); NEUTROPHILS # (AUTO) 3.1 K/uL (1.8-7.7); NEUTROPHILS % (AUTO) 87.4 % (42.2-75.2); PLATELET COUNT (AUTO) 233 K/uL (140-450); RED BLOOD CELL COUNT(AUTO) 4.28 MIL/uL (4.20-5.40); RED CELL DISTRIBUTION WIDTH 22.1 % (11.6-13.7); WHITE BLOOD COUNT (AUTO) 3.5 K/uL (4.8-10.8)
[2020-03-09 06:16] LABS: ANION GAP 21.4 (8-16); CARBON DIOXIDE 16.8 mmol/L (21-32); CHLORIDE 107 mmol/L (98-107); CREATININE 2.3 mg/dL (0.6-1.3); GLUCOSE 102 mg/dL (74-106); POTASSIUM 4.2 mmol/L (3.5-5.1); SODIUM SERUM 141 mmol/L (136-145); UREA NITROGEN, BLOOD 42 mg/dL (7-18)
[2020-03-09] MEDS: BLOOD GLUCOSE MONITORING 1 DEV DEV FS SCH ×4 (06:28→21:42)
--- NOTE | 2020-03-09 07:35 | NUR ---
PT REPORT GIVEN TO AM NURSE. PT ENDORSED IN STABLE CONDITION
[2020-03-09 08:00] VITALS: BP 109/66
[2020-03-09 08:07] LABS: T4 (THYROXINE) 7.9 ug/dL (4.5-12.0)
--- NOTE | 2020-03-09 08:45 | NUR ---
Received call from pt's daughter Linda inquiring about pt status. Informed her of pt's recent vital signs and SaO2 @ 95% on O2 @ 2Lpm via n/c. Per daughter, do not give specific information about patient to other family members. Request noted.
[2020-03-09] MEDS: FUROSEMIDE 40 MG TAB PO SCH (09:10)
[2020-03-09] MEDS: PANTOPRAZOLE 40 MG TABEC PO SCH (09:11)
[2020-03-09] MEDS: amLODIPine 5 MG TAB PO SCH (09:11)
[2020-03-09] MEDS: METOPROLOL SUCCINATE 50 MG TABER PO SCH (09:12)
[2020-03-09] MEDS: ZINC SULF 220 MG CAP PO SCH (09:12)
[2020-03-09] MEDS: ASCORBIC ACID 500 MG TAB PO SCH (09:12)
[2020-03-09] MEDS: APIXABAN 2.5 MG TAB PO SCH ×2 (09:14→21:29)
[2020-03-09 12:00] VITALS: BP 106/56
--- NOTE | 2020-03-09 13:30 | NUR ---
Dr Nolen notified of troponin level = 0.109, pt currently resting in bed, no signs of distress, no c/o chest pain/discomfort. Per Dr Nolen, continue Eliquis and cardio consult with Dr Camacho. Orders noted and carried out.
--- NOTE | 2020-03-09 14:30 | NUR ---
Found pt's IV out during routine rounds. IV cannula intact, left AC IV insertion site with min bleeding, site covered with dry gauze and tape, no hematoma. Pt states she doesn't know how it came off. 6 attempts made to insert new IV access by 3 different RNs but unsuccessful. Pt refused further attempts and states she wants to rest for now. Will try again later. Pt currently in no distress, respirations even & nonlabored on O2 @ 2Lpm via n/c/. Call light within reach, bed alarm on.
[2020-03-09 16:00] VITALS: BP 131/56
--- NOTE | 2020-03-09 19:30 | NUR ---
RECEIVED REPORT FORM YENNY RN DAYSHIFT NURSE AT BEDSIDE FOR CONTINUITY OF CARE, PT IN STABLE CONDITION.
[2020-03-09 20:00] VITALS: BP 126/57
--- NOTE | 2020-03-09 20:00 | NUR ---
PT SITTING UP IN BED AOX1, PT IS CONFUSED BUT HAS NO S/S OF PAIN OR DISTRESS. SHE IS ON 2 LITERS N/C. PT CONTINUES TO DECLINE AN IV SITE AT THIS TIME. V/S FOLLOWS: T 97.9 P 86 R 20 B/P 126/57 02 96% ON 2 LITERS VIA N/C. ALL DROPLET AND FALLS PRECAUTIONS IN PLACE.
--- NOTE | 2020-03-09 21:15 | NUR ---
PT SITTING UP N BED NO S/S OF PAIN OR DISTRESS NOTED PT GIVEN ORDERED AND SCHEDULED ELIQUIS AND LIPITOR. PT EDUCATED REGARDING MEDICATION ITS PURPOSES AND SIDE EFFECTS, PT VERBALIZED UNDERSTANDING. PT ATE VERY POORLY AT DINNER AND FINGERSTICK IS 107, NO HUMALOG COVERAGE NEEDED.
[2020-03-09] MEDS: ATORVASTATIN 20 MG TAB PO SCH (21:30)
--- NOTE | 2020-03-09 22:30 | NUR ---
ROUNDS DONE, PT OK , PT PULLED OFF HER EKG LEADS AND 02, PT ENCOURAGED AND REMINDED TO LEAVE IN NASAL CANNULA WELL THE EKG LEADS. ALL DROPLET AND FALLS PRECAUTIONS IN PLACE.
--- NOTE | 2020-03-09 23:30 | NUR ---
PT NEEDED URINE COLLECTION FOR ORDERED URINALYSIS. PT WAS STRAIGHT CATHED AND 500MLS EXPELLED. URINE WAS CLEAR YELLOW, NORMAL ODOR. SAMPLE COLLECTED AND TAKEN TO LAB.
[2020-03-10] VITALS: BP 135/59
--- NOTE | 2020-03-10 00:30 | NUR ---
PT IN BED AWAKE, NO S/S OF PAIN OR DISTRESS NOTED. V/S FOLLOWS: T 96.7 P 84 R 20 B/P 135/59 02 95% WITH 2 LITERS VIA N/C. ALL FALLS AND DROPLET PRECAUTIONS IN PLACE.
[2020-03-10] MEDS: ALBUTEROL SULFATE/IPRATROPIU 3 ML SOL IH SCH ×4 (01:00→19:00)
[2020-03-10 01:32] LABS: APPEARANCE,URINE CLEAR (CLEAR); BILIRUBIN,URINE NEGATIVE (NEGATIVE); BLOOD, URINE NEGATIVE (NEGATIVE); COLOR,URINE YELLOW (YELLOW); LEUKOCYTE ESTERASE ,URINE NEGATIVE (NEGATIVE); NITRITE, URINE NEGATIVE (NEGATIVE); PH,URINE 5.5 (5.0-9.0); UGLUCOSE NEGATIVE (NEGATIVE)
--- NOTE | 2020-03-10 01:49 | NUR ---
NO TX GIVEN DUE TO COVID POSITIVE. VITAL SIGNS STABLE. WILL CONTINUE TO MONITOR
--- NOTE | 2020-03-10 02:30 | NUR ---
DAUGHTER SU CALLED TO CHECK ON HER MOTHER, SHE WAS UPDATED ON PT STATUS. DAUGHTER RUT DID EXPRESS THAT SHE DOES NOT WANT HER MOTHER TO RECEIVE AMBIEN FOR SLEEPING WILL ENDORSE TO NEXT SHIFT.
[2020-03-10 04:00] VITALS: BP 146/68
--- NOTE | 2020-03-10 04:25 | NUR ---
PT IN BED, SHE TURNED, CHANGED AND REPOSITIONED IN BED. V/S FOLLOWS: T 97.3 P 90 R20 B/P 146/68 02 90% ON 2 LITERS VIA N/C.
--- NOTE | 2020-03-10 06:30 | NUR ---
FINGERSTICK IS 98 NO HUMALOG COVERAGE NEEDED. ALL REQUESTED NEEDS ATTENDED BY STAFF.
[2020-03-10] MEDS: BLOOD GLUCOSE MONITORING 1 DEV DEV FS SCH ×4 (06:39→20:14)
[2020-03-10 06:56] LABS: BASOPHILS % (AUTO) 0.1 % (0.0-2.0); HEMATOCRIT 36.1 % (36-48); HEMOGLOBIN 11.7 g/dL (12.0-16.0); LYMPHOCYTES # (AUTO) 0.5 K/uL (2.5-16.5); LYMPHOCYTES % (AUTO) 6.2 % (20.5-51.1); MEAN CORPUSCULAR HEMOGLOBIN 27 pg (27-31); MEAN CORPUSCULAR HGB CONC 32 g/dL (33-37); MEAN CORPUSCULAR VOLUME 83.2 fL (80-94); MONOCYTES # (AUTO) 0.5 K/uL (0.8-1.0); MONOCYTES % (AUTO) 6.1 % (1.7-9.3); NEUTROPHILS # (AUTO) 7.5 K/uL (1.8-7.7); NEUTROPHILS % (AUTO) 87.6 % (42.2-75.2); PLATELET COUNT (AUTO) 283 K/uL (140-450); RED BLOOD CELL COUNT(AUTO) 4.35 MIL/uL (4.20-5.40); RED CELL DISTRIBUTION WIDTH 21.6 % (11.6-13.7); WHITE BLOOD COUNT (AUTO) 8.5 K/uL (4.8-10.8)
[2020-03-10 07:03] LABS: ANION GAP 22.1 (8-16); CARBON DIOXIDE 17.7 mmol/L (21-32); CHLORIDE 108 mmol/L (98-107); CREATININE 2.1 mg/dL (0.6-1.3); GLUCOSE 96 mg/dL (74-106); POTASSIUM 3.8 mmol/L (3.5-5.1); SODIUM SERUM 144 mmol/L (136-145); UREA NITROGEN, BLOOD 39 mg/dL (7-18)
--- NOTE | 2020-03-10 07:10 | NUR ---
RECEIVED REPORT FROM FURNITURE MECHANIC NURSE. PATIENT AWAKE IN BED. FLACC 0, VERBAL BUT CONFUSED, RESPIRATIONS EVEN AND UNLABORED, 2L VIA NC, O2SAT 96%. NO IV ACCESS. SAFETY MEASURES IN PLACE. BED IN LOW POSITION. BED ALARM ON. CALL LIGHT WITHIN REACH. WILL CONTINUE TO MONITOR.
[2020-03-10 08:00] VITALS: BP 138/69
--- NOTE | 2020-03-10 08:45 | NUR ---
PT DAUGHTER CALLED. UPDATE GIVEN
[2020-03-10] MEDS: METOPROLOL SUCCINATE 50 MG TABER PO SCH (09:00)
[2020-03-10] MEDS: amLODIPine 5 MG TAB PO SCH (09:00)
[2020-03-10] MEDS: APIXABAN 2.5 MG TAB PO SCH ×2 (09:00→21:54)
--- NOTE | 2020-03-10 09:00 | NUR ---
DUE MEEDS GIVEN. TOLERATED PO MEDS WELL
[2020-03-10] MEDS: FUROSEMIDE 40 MG TAB PO SCH (09:20)
[2020-03-10] MEDS: PANTOPRAZOLE 40 MG TABEC PO SCH (09:21)
[2020-03-10] MEDS: ASCORBIC ACID 500 MG TAB PO SCH (09:21)
[2020-03-10] MEDS: ZINC SULF 220 MG CAP PO SCH (09:21)
[2020-03-10] MEDS: NACL 0.9% 1,000 ML IV SCH (10:16)
[2020-03-10 12:00] VITALS: BP 145/64
--- NOTE | 2020-03-10 12:30 | NUR ---
BLOOD SUGAR 109. COVERAGE GIVEN
--- NOTE | 2020-03-10 14:00 | NUR ---
ASSISTED PT TO BATHROOM AND BACK TO BED
[2020-03-10 16:00] VITALS: BP 130/74
--- NOTE | 2020-03-10 16:30 | NUR ---
PATIENT STABLE. NO SIGN AND SYMPTOMS OF DISTRESS NOTED . BLOOD SUGAR 110
--- NOTE | 2020-03-10 18:59 | NUR ---
PATIENT STABLE. NO SIGN AND SYMPTOMS OF DISTRESS. WILL ENDORSE THE PT TO THE ONCOMING RN FOR CONTINUITY OF CARE.
--- NOTE | 2020-03-10 19:20 | NUR ---
RECEIVED REPORT FROM MARJ HAN RN. PT AOX1 IN BED ON 2L NC, O2 SAT 95%. RESPIRATIONS EVEN AND UNLABORED. IV SITE LEFT HAND 24G PATENT AND INTACT. FLACC 0. SAFETY MEASURES IN PLACE. CALL LIGHT WITHIN REACH. WILL CONTINUE TO MONITOR
[2020-03-10 20:00] VITALS: BP 116/55
[2020-03-10] MEDS: ATORVASTATIN 20 MG TAB PO SCH (21:53)
--- NOTE | 2020-03-10 21:58 | NUR ---
PT DROPPED SCHEDULED MEDS. PULLED OUT NEW MEDS. ADMINISTERED SCHEDULED MEDS. PT TOLERATED WELL. WILL CONTINUE TO MONITOR
--- NOTE | 2020-03-10 23:03 | NUR ---
PT ASLEEP IN BED. RESPIRATIONS EVEN AND UNLABORED. O2 SAT 95%. NO DISTRESS NOTED. WILL CONTINUE TO MONITOR
[2020-03-11] VITALS: BP 136/63
[2020-03-11] MEDS: ALBUTEROL SULFATE/IPRATROPIU 3 ML SOL IH SCH ×4 (01:00→19:00)
--- NOTE | 2020-03-11 01:15 | NUR ---
ASSISTED PT TO BATHROOM AND BACK TO BED. PT VERBAL, CONFUSED. O2 SAT 94% NO DISTRESS NOTED. WILL CONTINUE TO MONITOR
[2020-03-11] MEDS: NACL 0.9% 1,000 ML IV SCH ×2 (03:05→19:45)
--- NOTE | 2020-03-11 03:30 | NUR ---
PT ASLEEP IN BED. RESPIRATIONS EVEN AND UNLABORED. WILL CONTINUE TO MONITOR
[2020-03-11 04:00] VITALS: BP 124/81
[2020-03-11 05:26] LABS: BASOPHILS % (AUTO) 0.1 % (0.0-2.0); HEMATOCRIT 34.5 % (36-48); HEMOGLOBIN 11.4 g/dL (12.0-16.0); LYMPHOCYTES # (AUTO) 0.4 K/uL (2.5-16.5); LYMPHOCYTES % (AUTO) 5.7 % (20.5-51.1); MEAN CORPUSCULAR HEMOGLOBIN 27 pg (27-31); MEAN CORPUSCULAR HGB CONC 33 g/dL (33-37); MEAN CORPUSCULAR VOLUME 81.4 fL (80-94); MONOCYTES # (AUTO) 0.6 K/uL (0.8-1.0); MONOCYTES % (AUTO) 8.5 % (1.7-9.3); NEUTROPHILS % (AUTO) 85.7 % (42.2-75.2); PLATELET COUNT (AUTO) 278 K/uL (140-450); RED BLOOD CELL COUNT(AUTO) 4.23 MIL/uL (4.20-5.40); RED CELL DISTRIBUTION WIDTH 21.4 % (11.6-13.7)
[2020-03-11 05:55] LABS: ANION GAP 16.7 (8-16); CARBON DIOXIDE 21.1 mmol/L (21-32); CHLORIDE 109 mmol/L (98-107); CREATININE 2.2 mg/dL (0.6-1.3); GLUCOSE 104 mg/dL (74-106); POTASSIUM 3.8 mmol/L (3.5-5.1); SODIUM SERUM 143 mmol/L (136-145); UREA NITROGEN, BLOOD 41 mg/dL (7-18)
[2020-03-11] MEDS: BLOOD GLUCOSE MONITORING 1 DEV DEV FS SCH ×4 (06:08→20:54)
--- NOTE | 2020-03-11 07:50 | NUR ---
ENDORSED PT TO DAY RN FOR CONTINUITY OF CARE. PT IS IN STABLE CONDITION Addendum: 03/11/20 at 0751 by Yanet Ga RN TIME 07
--- NOTE | 2020-03-11 07:55 | NUR ---
REC'D BEDSIDE ENDORSEMENT FROM NIGHTSHIFT NURSE. PATIENT IS IN BED RESTING. RESPIRATIONS EVEN AND UNLABORED. NO SIGNS OF DISTRESS NOTED. WILL CONTINUE W/ PLAN OF CARE. SAFETY MEASURES IN PLACE.
[2020-03-11 08:00] VITALS: BP 124/60
--- NOTE | 2020-03-11 08:15 | NUR ---
SPOKE WITH DAUGHTER RODRIGO FOR UPDATE. UPDATE GIVEN. WILL CONTINUE TO MONITOR
[2020-03-11] MEDS: APIXABAN 2.5 MG TAB PO SCH ×2 (09:18→20:54)
[2020-03-11] MEDS: amLODIPine 5 MG TAB PO SCH (09:19)
[2020-03-11] MEDS: METOPROLOL SUCCINATE 50 MG TABER PO SCH (09:19)
[2020-03-11] MEDS: ASCORBIC ACID 500 MG TAB PO SCH (09:20)
[2020-03-11] MEDS: FUROSEMIDE 40 MG TAB PO SCH (09:20)
[2020-03-11] MEDS: ZINC SULF 220 MG CAP PO SCH (09:21)
[2020-03-11] MEDS: PANTOPRAZOLE 40 MG TABEC PO SCH (09:21)
--- NOTE | 2020-03-11 09:37 | NUR ---
ADMINISTERED MEDS PRESCRIBED BY MD ORDERS. PATIENT TOLERATED WELL. REINFORCEMENT NEEDED. CHECKED RIGHT HAND IV AND IS NOT PATENT. WILL NEED TO REMOVE AND REINSERT NEW ONE. WILL CONT TO MONITOR
--- NOTE | 2020-03-11 11:30 | NUR ---
PT BLOOD SUGAR IS 96. NO NEED FOR INSULIN AT THIS TIME. SAFETY MEASURES IN PLACE. WILL CONTINUE TO MONITOR
[2020-03-11] MEDS ORDERED: MELATONIN 3 MG TAB PO PRN (11:55)
[2020-03-11 12:00] VITALS: BP 117/73
--- NOTE | 2020-03-11 12:00 | NUR ---
SPOKE WITH DAUGHTER RODRIGO FOR UPDATE. UPDATE GIVEN. WILL CONTINUE TO MONITOR
--- NOTE | 2020-03-11 12:48 | NUR ---
RECEIVED CALL FROM CHEMISTRY THAT PATIENT TROP IS [phone]. INFORMED DR. RANGEL AND CHARGE NURSE. NO NEW ORDERS. WILL CONTINUE TO MONITOR
--- NOTE | 2020-03-11 14:15 | NUR ---
PT WANTS TO BE ON ROOM AIR. PT SATURATING AT 93% ON ROOM AIR AFTER 15 MIN OFF OF 2LNC. PT TOLERATING WELL. NO SIGNS OF DISTRESS NOTED. WILL CONTINUE TO MONITOR
--- NOTE | 2020-03-11 15:30 | NUR ---
HOURLY ROUNDING, PATIENT PULLED IV FROM LEFT HAND. ATTEMPT MADE TO INSERT NEW IV, LINE WAS INFILTRATED. REQ ASSISTED FROM DESIGN CELL ENGINEER WHO SUCCESSFULLY INSERTED IV 20G RIGHT UPPER ARM. PATIENT IN BED WATCHING TV. RESPIRATIONS EVEN AND UNLABORED. NO SIGNS OF DISTRESS. WILL CONT TO MONITOR.
--- NOTE | 2020-03-11 15:45 | NUR ---
PT PULLED OUT INTACT IV LINE IN L HAND 20G. PT STATED, "I DIDN'T KNOW WHAT IT WAS SO I TOOK IT OUT." EDUCATED PT ON PURPOSE OF IVF AND IV MANAGEMENT. PT NEEDS REINFORCEMENT. NEW IV INSERTED IN R UPPER ARM 20G IS CLEAN, DRY, AND INTACT. WILL CONTINUE TO MONITOR Addendum: 03/11/20 at 1717 by Alaina Lao RN DUPLICATE NOTE. DISREGARD
[2020-03-11 16:00] VITALS: BP 136/77
--- NOTE | 2020-03-11 16:30 | NUR ---
PT BLOOD SUGAR IS 122. NO INSULIN NEEDED AT THIS TIME. WILL CONTINUE TO MONITOR
--- NOTE | 2020-03-11 18:00 | NUR ---
PT REMOVED GOWN, TELE STRIPS AND PULSE OX. REORIENTED PATIENT BUT PATIENT WAS STILL CONFUSED SAYING THAT SHE NEEDS TO GO HOME. READUJSTED PATIENT AND GOT HER CALMED DOWN. PT RESTING. WILL CONTINUE TO MONITOR
--- NOTE | 2020-03-11 19:20 | NUR ---
ENDORSED TO NIGHTSHIFT NURSE FOR CONTINUITY OF CARE. PT IS STABLE
--- NOTE | 2020-03-11 19:25 | NUR ---
RECEIVED REPORT AND CONTINUITY OF CARE FROM AM NURSE.
[2020-03-11 20:00] VITALS: BP 99/79
[2020-03-11] MEDS: ATORVASTATIN 20 MG TAB PO SCH (20:36)
--- NOTE | 2020-03-11 21:06 | NUR ---
UPON PHYSICAL ASSESSMENT, PT IS A/OX1, HEAD IS ROUND, NORMOCEPHALIC, FACE IS UNIFORMED, SYMMETRICAL, ALIGNED EYEBROWS AND SMILE, PMMM, SCLERA WHITE, PERRL. TRACHEA IS PLACE IN THE MIDLINE OF THE NECK, NO JVD PRESENT. CHEST IS SYMMETRICAL ON INSPIRATION AND EXPIRATION, BREATHING SPONTANEOUSLY ON ROOM AIR. S1, S2 HEART TONES NOTED. BOWEL TONES ARE ACTIVE IN FOUR QUADRANTS. ABD IS FLAT AND NONTENDER. SKIN IS SMOOTH, WARM, DRY, AND INTACT. NAILS ARE CLEAN, INTACT, CAP REFILL IS LESS THAN 3 SECONDS, NO CLUBBING OR CYANOSIS NOTED. EQUAL AND BILATERAL PEDAL PULSES NOTED. ORIENTED PT TO STAFF AND CALL LIGHT. SAFETY PRECAUTIONS IN PLACE. ADMINISTERED SCHEDULED MEDICATION. EDUCATION GIVEN. PT TOLERATED IT WELL.
--- NOTE | 2020-03-11 23:16 | NUR ---
PT IS SLEEPING. NO SIGNS OF DISTRESS NOTED.
[2020-03-12] VITALS: BP 121/68
[2020-03-12] MEDS: ALBUTEROL SULFATE/IPRATROPIU 3 ML SOL IH SCH ×4 (00:13→19:00)
--- NOTE | 2020-03-12 01:12 | NUR ---
PT IS SLEEPING NO SIGNS OF DISTRESS NOTED.
--- NOTE | 2020-03-12 03:45 | NUR ---
STARTED NEW IV TO LEFT WRIST 20G. PT TOLERATED IT WELL.
[2020-03-12 04:00] VITALS: BP 130/70
--- NOTE | 2020-03-12 05:45 | NUR ---
PT IS SLEEPING.
--- NOTE | 2020-03-12 06:15 | NUR ---
PT GOT OUT OF BED. SAFELY REDIRECTED EDA TO BED. NO SIGNS OF DISTRESS NOTED.
--- NOTE | 2020-03-12 07:22 | NUR ---
RECEIVED REPORT FROM NIGHT NURSE PATIENT IS AOX1,CONFUSED AND TRIES TO GETOUT OF BED. ON ROOM AIR, AMBULATORY, ON REGULAR DIET AND IV SITES INTACT AND PATENT ON LEFT WRIST, SKIN INTACT, SAFETY MEASURES IN PLACE AND CALL LIGHT WITHIN REACH. WILL CONTINUE TO MONITOR.
--- NOTE | 2020-03-12 07:30 | NUR ---
ENDORSED CARE TO AM NURSE. PT IS IN STABLE CONDITION.
[2020-03-12] MEDS: BLOOD GLUCOSE MONITORING 1 DEV DEV FS SCH ×4 (07:48→21:03)
[2020-03-12 08:00] VITALS: BP 126/56
[2020-03-12] MEDS: ASCORBIC ACID 500 MG TAB PO SCH (08:15)
[2020-03-12] MEDS: ZINC SULF 220 MG CAP PO SCH (08:15)
[2020-03-12] MEDS: PANTOPRAZOLE 40 MG TABEC PO SCH (08:15)
[2020-03-12] MEDS: amLODIPine 5 MG TAB PO SCH (08:16)
[2020-03-12] MEDS: METOPROLOL SUCCINATE 50 MG TABER PO SCH (08:16)
[2020-03-12] MEDS: FUROSEMIDE 40 MG TAB PO SCH (08:17)
[2020-03-12] MEDS: APIXABAN 2.5 MG TAB PO SCH ×2 (08:17→20:40)
--- NOTE | 2020-03-12 08:39 | NUR ---
MEDICATIONS DUE GIVEN CHECK VITAL SIGNS PRIOR TO MEDICATION BP 126/56 MS 73 PATIENT IS STLL CONFUSED AND WANT TO GET OUT OF BED. SAFETY MEASURES IN PLACE CALL LIGHT WITHIHN REACH. WILL CONTINUE TO MONITOR.
--- NOTE | 2020-03-12 10:14 | NUR ---
NO TX GIVEN DUE TO COVID PROTOCOL
--- NOTE | 2020-03-12 11:45 | NUR ---
BLOOD SUGAR MONITORING DONE AT A LEVEL OF 102 MG/DL NO INSULIN COVERAGE AND VITAL SIGNS TAKEN. IV FLUIDS DISCONTINUED PER DOCTORS ORDER.
[2020-03-12 12:00] VITALS: BP 127/62
--- NOTE | 2020-03-12 14:14 | NUR ---
TX not given due to covid protocol
--- NOTE | 2020-03-12 14:57 | NUR ---
03/12/2020 RD INITIAL ASSESSMENT COMPLETED PLEASE REFER TO NUTRITION ASSESSMENT UNDER CARE ACTIVITY FOR ESTIMATED NUTRITIONAL NEEDS. CONTINUE CURRENT REGULAR DIET ADD ENSURE TID FOR ADDITIONAL KCALS/PRO RD TO FOLLOW-UP IN 3-5 DAYS PATIENT IS MODERATE RISK. ASHLEE VEE, RD
[2020-03-12 16:00] VITALS: BP 108/43
--- NOTE | 2020-03-12 16:17 | NUR ---
BLOOD SUGAR AT 119 MG/DL NO INSULIN COVERAGE. PAT IS STILL CONFUSED AND STABLE.
--- NOTE | 2020-03-12 19:24 | NUR ---
ENDORSED TO NIGHT NURSE FOR CONTINUITY OF CARE PT IS STABLE.
--- NOTE | 2020-03-12 19:32 | NUR ---
RECEIVED ENDORSEMENT FORM DAY RN, PT IS SITTING ON BED COMFORTABLY, NO ACUTE DISTRESS, NO SOB NOTED. RESPIRATIONS EVEN AND UNLABORED. SKIN DRY AND INTACT. OBSERVED DROPLET PRECAUTION FOR COVID19. SAFETY MEASURES IN PLACED. BED IN LOWEST POSITION. SIDE RAILS UP X2. CALL LIGHT WITHIN REACH. WILL CONTINUE TO MONITOR.
--- NOTE | 2020-03-12 19:55 | NUR ---
RECEIVED REPORT FROM AM SHIFT. PT SEEN AND ASSESSED. PT IS ON ROOM AIR WITH SPO2 OF 94%. AUSCULTATION REVEALS BILATERAL RALES/DIMINISHED BREATH SOUNDS. PT IS IN NO APPARENT RESPIRATORY DISTRESS AT THIS TIME. SCHEDULE TX NOT GIVEN DUE TO COVID PROTOCOL. WILL CONTINUE TO MONITOR PT.
[2020-03-12 20:00] VITALS: BP 135/78
[2020-03-12] MEDS: ATORVASTATIN 20 MG TAB PO SCH (20:42)
--- NOTE | 2020-03-12 21:00 | NUR ---
PT PULLED OUT HER IV SALINE LOCK ON L WRIST. PER PT IT WAS UNINTENTIONALLY. WILL CONTINUE TO MONITOR.
--- NOTE | 2020-03-12 21:00 | NUR ---
DUE MEDS GIVEN, PT ABLE TO TOLERATE WELL. BLOOD GLUCOSE CHECKED-135, NO INSULIN COVERAGE NEEDED PER PROTOCOL. WILL CONTINUE TO MONITOR.
--- NOTE | 2020-03-12 23:00 | NUR ---
CHECKED ON PT, RESTING COMFORTABLY IN BED, NO DISTRESS NOTED. DENIES ANY PAIN OR DISCOMFORT AT THIS TIME. SAFETY MEASURES IN PLACED. CALL LIGHT WITHIN REACH. WILL CONTINUE TO MONITOR.
[2020-03-13] VITALS: BP 114/79
--- NOTE | 2020-03-13 01:00 | NUR ---
PT ASLEEP COMFORTABLY IN BED. NO APPARENT DISTRESS, NO SOB. RESPIRATIONS EQUAL. SAFETY MEASURES IN PLACED. CALL LIGHT WITHIN REACH. WILL CONTINUE TO MONITOR.
--- NOTE | 2020-03-13 03:00 | NUR ---
DONE ROUNDS, PT RESTING COMFORTABLY IN BED. NO APPARENT DISTRESS, NO SOB. ASKED FOR ADDITIONAL BLANKET. SAFETY MEASURES IN REINFORCED. CALL LIGHT WITHIN REACH. WILL CONTINUE TO MONITOR.
[2020-03-13 04:00] VITALS: BP 119/69
--- NOTE | 2020-03-13 05:00 | NUR ---
CHECKED ON PT, SLEEPING COMFORTABLY IN BED. NO ACUTE DISTRESS, NO SOB NOTED. SAFETY MEASURES IN PLACED. CALL LIGHT WITHIN REACH. WILL CONTINUE TO MONITOR.
[2020-03-13] MEDS: BLOOD GLUCOSE MONITORING 1 DEV DEV FS SCH ×3 (06:39→17:03)
--- NOTE | 2020-03-13 06:39 | NUR ---
BLOOD SUGAR CHECK-85 , NO INSULIN COVERAGE NEEDED.
--- NOTE | 2020-03-13 07:18 | NUR ---
ENDORSED TO AM NURSE IN STABLE CONDITION FOR CONTINUITY OF CARE.
--- NOTE | 2020-03-13 07:19 | NUR ---
RECEIVED ENDORSEMENT FROM DIGITAL FORENSIC ANALYST, AWAKE, ALERT, CONFUSED, BREATHING SPONTANEOUSLY AT ROOM AIR, NON LABORED. ON DROPLET ISOLATION, DX: COVID POSITIVE. SAFETY MEASURES IN PLACE AND CONTINUE MONITOR.
[2020-03-13 07:55] LABS: ANION GAP 19.4 (8-16); CARBON DIOXIDE 20.2 mmol/L (21-32); CHLORIDE 108 mmol/L (98-107); GLUCOSE 106 mg/dL (74-106); POTASSIUM 3.6 mmol/L (3.5-5.1); SODIUM SERUM 144 mmol/L (136-145)
[2020-03-13 08:00] VITALS: BP 128/70
[2020-03-13] MEDS: FUROSEMIDE 40 MG TAB PO SCH (09:00)
--- NOTE | 2020-03-13 09:06 | NUR ---
PASSED LARGE AMOUNT OF STOOL, MORNING CARE DONE BY SPECIAL EDUCATION CURRICULUM SPECIALIST.
[2020-03-13 09:40] LABS: UREA NITROGEN, BLOOD 74 mg/dL (7-18)
[2020-03-13 09:41] LABS: CREATININE 2.7 mg/dL (0.6-1.3)
[2020-03-13] MEDS ORDERED: APIX5TAB PO ×2 (10:00→16:49)
--- NOTE | 2020-03-13 10:09 | NUR ---
FULLY AWAKE AND ALERT. DUE MEDICATION GIVEN
[2020-03-13] MEDS: PANTOPRAZOLE 40 MG TABEC PO SCH (10:12)
[2020-03-13] MEDS: ZINC SULF 220 MG CAP PO SCH (10:12)
[2020-03-13] MEDS: ASCORBIC ACID 500 MG TAB PO SCH (10:12)
[2020-03-13] MEDS: METOPROLOL SUCCINATE 50 MG TABER PO SCH (10:13)
[2020-03-13] MEDS: amLODIPine 5 MG TAB PO SCH (10:13)
[2020-03-13] MEDS: APIXABAN 2.5 MG TAB PO SCH (10:16)
[2020-03-13 12:00] VITALS: BP 119/71
--- NOTE | 2020-03-13 12:31 | NUR ---
GLUCOSE-98, NO INSULIN COVERAGE, VITAL SIGNS TAKEN, STABLE
--- NOTE | 2020-03-13 14:40 | NUR ---
APPARENTLY CONFUSED AND WANTS TO GET OUT OF BED, ASSISTED TO GO BACK TO BED AND KEPT COMFORTABLE
[2020-03-13 16:00] VITALS: BP 114/79
--- NOTE | 2020-03-13 16:45 | NUR ---
PATIENT'S DAUGHTER SU CONTACTED AND MADE AWARE THAT PATIENT WILL BE TRANSFER TO [facility] AND SHE DOESN'T WANT THE VACCINE FOR HER MOTHER.
[2020-03-13 17:07] VITALS: BP 114/79
--- NOTE | 2020-03-13 17:12 | NUR ---
[facility] CONTACTED AND WITH THE NURSE CELINA, REPORT GIVEN
--- NOTE | 2020-03-13 18:45 | NUR ---
DISCHARGED IN STABLE CONDITION, BREATHING SPONTANEOUSLY AT ROOM AIR, ACCOMPANIED BY [facility] [employer] TRANSPORT PERSONNEL TO [facility]. DISCHARGE PACKET INSTRUCTION AND PATIENT BELONGINGS ENDORSED TO [employer] PERSONNEL.
== END 2020-03-13 19:10 | DRG 177 ==
LOC: MED → MTU 02:25
PROVIDERS: ADMIT Family Medicine; ATTEND Family Medicine
PROC: XW13325 Transfusion of Convalescent Plasma (Nonautologous) into Peripheral Vein, Percutaneous Approach, New Technology Group 5 (ICD-10-PCS; principal; 2020-03-09)
DX: U07.1 COVID-19 (principal); N17.0 Acute kidney failure with tubular necrosis; J12.89 Other viral pneumonia; E43 Unspecified severe protein-calorie malnutrition; J96.01 Acute respiratory failure with hypoxia; I50.43 Acute on chronic combined systolic (congestive) and diastolic (congestive) heart failure; I21.A1 Myocardial infarction type 2; I13.0 Hypertensive heart and chronic kidney disease with heart failure and stage 1 through stage 4 chronic kidney disease, or unspecified chronic kidney disease; I69.351 Hemiplegia and hemiparesis following cerebral infarction affecting right dominant side; I82.412 Acute embolism and thrombosis of left femoral vein; J44.0 Chronic obstructive pulmonary disease with (acute) lower respiratory infection; I82.432 Acute embolism and thrombosis of left popliteal vein; E87.2 Acidosis; N18.9 Chronic kidney disease, unspecified; I73.9 Peripheral vascular disease, unspecified; E86.0 Dehydration; E05.90 Thyrotoxicosis, unspecified without thyrotoxic crisis or storm; D63.8 Anemia in other chronic diseases classified elsewhere; F01.50 Vascular dementia, unspecified severity, without behavioral disturbance, psychotic disturbance, mood disturbance, and anxiety; I48.0 Paroxysmal atrial fibrillation; Z88.0 Allergy status to penicillin; Z95.0 Presence of cardiac pacemaker; I25.2 Old myocardial infarction; Z88.2 Allergy status to sulfonamides; Z88.8 Allergy status to other drugs, medicaments and biological substances; Z91.041 Radiographic dye allergy status; Z91.013 Allergy to seafood; Z68.24 Body mass index [BMI] 24.0-24.9, adult; Z79.899 Other long term (current) drug therapy; Z90.49 Acquired absence of other specified parts of digestive tract
CPT/HCPCS: 36415; 36430; 36600; 71045; 80048; 80053; 81003; 82150; 82550; 82728; 82803; 82948; 83036; 83605; 83615; 83690; 83735; 83880; 84100; 84436; 84439; 84443; 84479; 84484; 85025; 85379; 85384; 85610; 85651; 85730; 86140; 86886; 86900; 86901; 87040; 87081; 93005; 93925; 93970; 96360; 97110; 97112; 97116; 97161-GP; 97530; 99285; C1758; J1815; J7030; P9017; Q0092